=== PATIENT | female | born 1975 | race Hispanic/Latino ===

== ENCOUNTER 2016-10-21 08:15 | Day surgery (SDC) | payer OTHER ==
[~2016-10-21] VITALS: Ht 152.4 cm; Wt 62.0 kg
[~2016-10-21 08:15] MED LIST: NPR500T PO; Sodium Chloride LOK Flush 10 mL Syringe IV PRN; fentaNYL-PF 50 mCg/mL 2 mL Inj IVPUSH PRN
[2016-10-21] MEDS ORDERED: fentaNYL-PF 50 mCg/mL 2 mL Inj IVPUSH ONE (08:16)
[2016-10-21 08:30] VITALS: BP 131/80; PULSE 82; RESP 16; O2SAT 100
[2016-10-21] MEDS: 0.9% Sodium Chloride 1,000 ML IV SCH ×2 (08:35→08:49)
[2016-10-21 09:02] VITALS: BP 118/72; PULSE 94; RESP 16; O2SAT 100
[2016-10-21 09:13] VITALS: BP 118/71; PULSE 87; RESP 16; O2SAT 100
--- NOTE | 2016-10-22 02:35 | ENDO ---
[address] [address] ENDOSCOPY PROCEDURE PATIENT: VIJAY BENDER : 1975 MR#: [id number] ADMIT: 10/21/2016 JOB ID: [id number] PROCEDURE: Colonoscopy. INDICATION: Left upper quadrant pain. Patient's ASA classification is one. Mallampati score is one. MEDICATIONS: 1. Versed 6 mg. 2. Fentanyl 100 mcg. INSTRUMENT USED: PCF H 180 AL. PREPARATION QUALITY: Good. PROCEDURE DETAILS: After informed consent was obtained, the patient was brought into the GI suite, where she was placed on oxygen via nasal cannula and monitored with continuous pulse oximeter, telemetry and blood pressure monitoring. A time-out was performed. Then, she was placed in a left lateral decubitus position and medications were administered for sedation. Digital rectal exam was performed and was unremarkable. The colonoscope was then inserted into the rectum and advanced under direct visualization to the terminal ileum which was identified by the ileocecal valve and villous appearing mucosa of the terminal ileum. Once the terminal ileum was reached, the colonoscope was withdrawn back into the rectum. The mucosa and lumen were examined. In the rectum, retroflexion was performed. Following retroflexion, remaining air in the rectum was suctioned and procedure was completed. FINDINGS: 1. Normal exam from rectum to terminal ileum. 2. No findings to explain patient's left upper quadrant pain. RECOMMENDATIONS: 1. Consider abdominal imaging if not already performed. 2. Follow up in GI clinic. COMPLICATIONS: None. ESTIMATED BLOOD LOSS: Zero.
== END 2016-10-21 23:59 | disposition home or self-care (01) ==
LOC: END 08:15
PROVIDERS: ATTEND Internal Medicine Gastroenterology
DX: R10.12 Left upper quadrant pain (principal); K62.89 Other specified diseases of anus and rectum
CPT/HCPCS: 45378; G0500; J2250; J3010; J7030